=== PATIENT | female | born 1995 | race Caucasian/White ===

== ENCOUNTER → 2018-12-01 | Outpatient (CLI) | payer OTHER | LOC: AMB 00:06 | PROVIDERS: ATTEND Nurse Practitioner | DX: M54.6 Pain in thoracic spine (principal); R07.89 Other chest pain; V28.5XXA Motorcycle passenger injured in noncollision transport accident in traffic accident, initial encounter; M79.662 Pain in left lower leg | CPT/HCPCS: A0425; A0427 ==

== ENCOUNTER 2018-12-02 00:55 | Emergency (ER) | payer OTHER ==
[2018-12-02] MEDS ORDERED: NS(*) 0.9% 1000 ML BAG 1,000 ML IV ONE (01:00)
[2018-12-02] MEDS ORDERED: fentaNYL CITR 100 MCG/2 ML AMP IVP ONE ×3 (01:00→05:10)
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
[2018-12-02] MEDS ORDERED: IOPAMIDOL 76% 150 ML INFUS BTL 150 ML ONE (01:39)
[2018-12-02 02:22] LABS: PLATELET COUNT, AUTOMATED 232 K/uL (150-450)
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
[2018-12-02] MEDS ORDERED: DIPHTH/TETANUS/ACEL. PERTUSSIS IM ONLY ONE (04:00)
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
[2018-12-02 04:29] LABS: INR 1.24
[2018-12-02 05:00] VITALS: BP 129/79
== END 2018-12-02 05:50 | disposition short-term general hospital (02) ==
LOC: ER 01:00
DX: S22.009A Unspecified fracture of unspecified thoracic vertebra, initial encounter for closed fracture (principal); S22.32XA Fracture of one rib, left side, initial encounter for closed fracture; S42.022A Displaced fracture of shaft of left clavicle, initial encounter for closed fracture; S27.322A Contusion of lung, bilateral, initial encounter; V29.9XXA Motorcycle rider (driver) (passenger) injured in unspecified traffic accident, initial encounter
CPT/HCPCS: 70450; 71045; 71260; 72125; 72129; 72170; 73564; 74177; 81001; 83605; 84703; 85025; 85610; 85730; 90471; 90715; 96361; 96374; 96376; 99285; J3010; J7030; Q9967; 82040; 82247; 82310; 82374; 82435; 82565; 82947; 84075; 84132; 84155; 84295; 84450; 84460; 84520; C1758

== ENCOUNTER → 2018-12-02 | Outpatient (CLI) | payer OTHER | LOC: AMB 05:10 | PROVIDERS: ATTEND Nurse Practitioner | DX: M54.5 Low back pain (principal); V29.9XXA Motorcycle rider (driver) (passenger) injured in unspecified traffic accident, initial encounter | CPT/HCPCS: A0425; A0426 ==